=== PATIENT | male | born 1965 | race Caucasian/White ===

== ENCOUNTER → 2017-01-04 | Outpatient (CLI) | payer BC ==
[~2017-01-04] VITALS: Ht 180.3 cm; Wt 124.7 kg
[~2017-01-04] MED LIST: AMITRIPTYLINE H10 M1 PO; ASPIRIN325 MG PO; CRESTOR5 MG PO; DICLOFENAC SODI75 MG PO; FENOFIBRATE160 M1 PO; GLIMEPIRIDE1 MG PO; GLUCOPHAGE XR750 MG PO; HUMALOG100 UNIT/2 SC; HYDROCHLOROTHIA25 MG PO; JANUMET 50/51 TABLET PO; LANTUS 3 M100 UNITS1 SC; METFORMIN HCL1000 M1 PO; METOPROLOL SUCC25 MG PO; NITROSTAT0.4 MG SL; PLAVIX75 MG PO; PRAVACHOL40 MG PO; PRINIVIL10 MG PO; TOPROL XL25 MG PO; ZESTRIL,PRINIV2.5 MG PO; ZESTRIL,PRINIVIL5 MG PO
[2017-01-04 10:19] LABS: POINT-OF-CARE METER ID UU14174212
[2017-01-04 10:57] LABS: ANION GAP 8 MEQ/L (2-14); CHLORIDE 107 MEQ/L (99-109); GFR ESTIMATE (CALCULATED) > 59 mL/min/; GLUCOSE 126 mg/dL (70-99); SAMPLE HEMOLYSIS CHECK 0; SAMPLE ICTERIC CHECK 0; SAMPLE LIPEMIA CHECK 0; SODIUM 139 MEQ/L (136-147); UREA NITROGEN (BUN) 14 mg/dL (9-23)
== END | disposition home or self-care (01) ==
LOC: AMB 09:35
PROVIDERS: Internal Medicine
PROC: 0DJD8ZZ Inspection of Lower Intestinal Tract, Via Natural or Artificial Opening Endoscopic (ICD-10-PCS; principal; 2017-01-04)
DX: Z12.11 Encounter for screening for malignant neoplasm of colon (principal); Z53.09 Procedure and treatment not carried out because of other contraindication; I10 Essential (primary) hypertension; E78.5 Hyperlipidemia, unspecified; E11.9 Type 2 diabetes mellitus without complications; I25.10 Atherosclerotic heart disease of native coronary artery without angina pectoris; R94.31 Abnormal electrocardiogram [ECG] [EKG]; Z95.5 Presence of coronary angioplasty implant and graft; Z79.02 Long term (current) use of antithrombotics/antiplatelets; Z79.84 Long term (current) use of oral hypoglycemic drugs; Z79.82 Long term (current) use of aspirin
CPT/HCPCS: 80048; 82948; J2704